=== PATIENT | male | born 1985 | race Caucasian/White ===

== ENCOUNTER 2018-10-06 12:55 | Emergency (ER) | payer OTHER, SELFPAY ==
[2018-10-06 13:05] VITALS: BP 159/99; PULSE 106; RESP 14; TEMP 37.8; O2SAT 95
--- NOTE | 2018-10-06 13:38 | ED.GENADUL_ITS ---
Discharge Plan Disposition Patient Disposition: HOME Condition: Improving Discharge Details Chief Complaint: Cellulitis Clinical Impression: Cellulitis of left leg Primary Care Provider: Katharine,Local ED Provider: Amber Oreilly Home Meds and New Rx's Prescriptions: New clindamycin HCl 150 mg capsule 450 mg PO Q6H 10 Days Qty: 120 RF: 0 Continued clonidine HCl 0.1 mg Tablet 0.1 mg PO DIRECTED RF: 0 acetaminophen 325 mg Tablet 650 mg PO ONCE PRNRF: 0 divalproex 250 mg Tablet,Delayed Release (Dr/Ec) 750 mg PO BID RF: 0 cyproheptadine 4 mg Tablet 8 mg PO DAILY RF: 0 ranitidine HCl [Zantac] 150 mg Tablet 150 mg PO DAILY RF: 0 naproxen 500 mg Tablet 500 mg PO BID PRNRF: 0 duloxetine 60 mg Capsule,Delayed Release(Dr/Ec) 60 mg PO DAILY RF: 0 Discontinued sulfamethoxazole-trimethoprim 800-160 mg Tablet 1 tab PO BID RF: 0 Discharge Instructions Instructions: Cellulitis (ED) Additional Instructions: Stop taking the Bactrim. Start taking the clindamycin and finish as directed. Alternate Tylenol and Motrin as needed and directed for pain. Follow-up with the medical staff tomorrow at the correctional facility for reevaluation. Return immediately to the emergency department if you develop any worsening or new concerning symptoms. Discharge Data Discharge Physician: Amber Oreilly Medical Decision Making 33-year-old male who presents to the correctional facility with left leg cellulitis for the past few days. Now developing fever and chills. Has taken 2 doses of Bactrim. Heart rate 106. Temp 100.1. Patient appears nontoxic. There is an area of cellulitis from the mid leg down to the foot. There is a center crust that could be consistent with a bug bite. Patient is unsure how he obtained this. Denies any known history of tick. Will place an IV, screening labs, lactate blood cultures, x-rays of ankle and leg and give bolus IV fluids, Tylenol and Toradol. 1610 -- Labs and imaging reviewed. White blood cell count 11.84. Lactate 2.0. X-rays note soft tissue edema and marked tissue swelling around the ankle. In the setting of significant edema and elevated lactate, will obtain a CT lower e xtremity to rule out abscess. Dose of clindamycin IV ordered. 1814 --CT notes soft tissue swelling but no obvious abscess. Repeat lactate done and normalized at 1.1. Patient states he feels much better. Repeat vital signs note normal heart rate, and blood pressure and he is now afebrile. There is notable significant decrease in erythema to the left lower extremity. Although patient only had 2 doses of Bactrim, as there is significant improvement while here, will change antibiotics to clindamycin. Patient appropriate for discharge back to correctional facility. New skin markings were placed around outer edges which had slightly progressed outside markings this morning but which appear already improved. Advised to follow-up with medical staff this week for evaluation and to return here anytime if worse. Medical Records Medical records reviewed: Yes I reviewed the patient's medical records. Imaging Data Radiologic Study: Radiologist's impression: Addendum created by Crissy Huertas MD on 10/06/2018 4:09:25 PM EDT No evidence for bone erosion to suggest osteomyelitis. Again study incompletely evaluates the ankle. Initial report created on 10/06/2018 4:08:04 PM EDT XR Left Tibia and Fibula EXAM DATE/TIME: 10/06/2018 2:01 PM CLINICAL HISTORY: 33 years old, male; Other: Left ankle cellulitis, R/O osteomyelitis TECHNIQUE: Imaging protocol: XR Left tibia and fibula. Views: 2 views. COMPARISON: No relevant prior studies available. FINDINGS: Bones/joints: Limited study of the proximal tibia and fibula. The evaluation of the ankle is incomplete. There is no obvious fracture or dislocation. Soft tissues: There is soft tissue edema along the medial aspect of the lower leg. IMPRESSION: 1. Soft tissue edema involving the medial distal lower extremity. 2. No obvious acute bony injury. Incomplete evaluation of the ankle. XR Left Ankle EXAM DATE/TIME: 10/06/2018 2:01 PM CLINICAL HISTORY: 33 years old, male; Other: Left legcellulitis, R/O osteomyelitis TECHNIQUE: Imaging protocol: XR Left ankle. Views: 3 or more views. COMPARISON: No relevant prior studies available. FINDINGS: Bones/joints: There is no evidence for bone erosion to suggest osteomyelitis. There is no fracture or dislocation. Soft tissues: Marked soft tissue swelling of the ankle. IMPRESSION: Soft tissue swelling left ankle. No evidence for bone erosion. There's a concern for abscess or venous thrombosis, ultrasound may be helpful for further evaluation. CT Left Lower Extremity With Contrast, Tibia and Fibula EXAM DATE/TIME: 10/06/2018 4:17 PM CLINICAL HISTORY: 33 years old, male; Pain; Swelling, leg or foot; Lower leg; Left TECHNIQUE: Imaging protocol: CT of the Left lower extremity with intravenous contrast was performed. Exam focused on the tibia and fibula. Coronal and sagittal reformatted images were created and reviewed. Radiation optimization: All CT scans at this facility use at least one of these dose optimization techniques: automated exposure control; mA and/or kV adjustment per patient size (includes targeted exams where dose is matched to clinical indication); or iterative reconstruction. Contrast material: OMNIPAQUE 350;Contrast volume: 100 ml;Contrast route: IV; COMPARISON: SC XR tib/fib LT 06/10/2018 15:28 FINDINGS: Bones/joints: No fracture or dislocation. No bone erosion. Small knee effusion. Small ankle effusion. Soft tissues: Subcutaneous edema primarily involving the foot and ankle, but extending up the lower leg. IMPRESSION: 1. Diffuse edema involving the foot, ankle, and lower extremity. 2. Small fluid collection in the talotibial joint and knee. 3. No evidence for bone erosion or fracture. HPI General Mode of arrival: ambulatory . Date/Time Provider Initiated Documentation: 10/06/18 13:38 . Limitations to Documentation: no limitations . Information obtained by: patient . HPI Narrative: Patient is a 33-year-old male who presents from the correctional facility with left leg infection for the past few days. Patient states a few days ago he noticed what he thought was a bug bite to his left ankle/foot. He states that since yesterday he has developed increasing redness and pain around the site. This morning he was seen by the nurse and they marked the area of cellulitis. He states he has taken 2 doses of Bactrim without relief. He admits to chills and fever. He denies any chest pain or shortness of breath. He denies seeing a bug bite but he assumes it may have been. He denies any known tick bite. Related Data Home Medications Medication Instructions Recorded Confirmed acetaminophen 650 mg PO ONCE PRN 10/06/18 10/06/18 clindamycin HCl 450 mg PO Q6H 10 Days #120 cap 10/06/18 clonidine HCl 0.1 mg PO DIRECTED 10/06/18 10/06/18 cyproheptadine 8 mg PO DAILY 10/06/18 10/06/18 divalproex 750 mg PO BID 10/06/18 10/06/18 duloxetine 60 mg PO DAILY 10/06/18 10/06/18 naproxen 500 mg PO BID PRN 10/06/18 10/06/18 ranitidine HCl [Zantac] 150 mg PO DAILY 10/06/18 10/06/18 Previous Rx's Medication Instructions Recorded clindamycin HCl 450 mg PO Q6H 10 Days #120 cap 10/06/18 Allergies Allergy/AdvReac Type Severity Reaction Status Date / Time erythromycin base Allergy Unverified 10/06/18 13:08 General Stated Complaint: Cellulitis SRAVANI: 3 Review of Systems Review of Systems All systems reviewed & are unremarkable except as noted in HPI and below Constitutional Reports as per HPI, Reports chills and Reports fever(s) Eyes Denies blurry vision ENT Denies dizziness, Denies sore throat and Denies throat swelling Cardiovascular Denies chest pain and Denies dyspnea Respiratory Denies cough and Denies dyspnea Gastrointestinal Denies abdominal pain, Denies diarrhea and Denies vomiting Genitourinary Denies hematuria and Denies dysuria Musculoskeletal Denies back pain and Denies numbness Integumentary/Breasts Reports lesions and Reports rash Neurologic Denies dizziness, Denies focal weakness and Denies numbness Allergic/Immunologic Denies throat swelling PFSH Medical History No significant past medical history (Acute) Surgical History No significant past surgical history (Acute) Social History Alcohol Intake: never Drug use: Current Sobriety Substance use type: opiates Exam Const General: cooperative, healthy appearing and no acute distress HENMT Head: normal to inspection Face and sinus: normal facial exam Eyes General: appearance normal, both eyes and all related structures EOM: EOM intact bilaterally Neck Neck: normal visual inspection and No submandibular swelling Lymphatic: no lymphadenopathy noted Chest Chest: normal inspection of the chest and no tenderness Resp Effort & Inspection: normal respiratory effort and able to speak in complete sentences Auscultation: clear to auscultation bilaterally Cardio Rate: regular rate Rhythm: regular rhythm GI Inspection: normal to inspection Palpation: soft, not firm, not rigid and nontender Auscultation: normal bowel sounds Male General Exam: Yes normal external exam Back/Spine/Pelvis Thoracic/Lumbar Spine: thoracic and lumbar spine normal to inspection Pelvis: no pain with anterior-posterior compression Skin General skin exam: no rashes or lesions noted Neuro General: alert, awake and oriented x3 Cognition: normal cognition Speech: speech normal Motor: muscle tone normal throughout Sensory Exam: no sensory deficits noted Extrem General: full ROM, normal capillary refill and no calf tenderness bilaterally Ankle/foot/toe images: 1. Erythema noted 2. Erythema noted. 3. 1 x 1 cm crust noted with surrounding edema and erythema. Other: Bilateral DP/PT pulses intact. Psych Appearance: grossly normal Mental Status: mental status grossly normal Speech and Movement: speech and movement normal Affect: normal affect Course Vital Signs Temperature 100.1 F H 10/06/18 13:05 Pulse 106 H 10/06/18 13:05 Respiratory Rate 14 10/06/18 13:05 Blood Pressure 159/99 H 10/06/18 13:05 Pulse Oximetry 95 10/06/18 13:05 Temperature 100.1 F H 10/06/18 13:05 Temperature Source Oral 10/06/18 13:05 Pulse 106 H 10/06/18 13:05 Respiratory Rate 14 10/06/18 13:05 Respiratory Effort Non-Labored 10/06/18 13:25 Blood Pressure 159/99 H 10/06/18 13:05 Blood Pressure Position Sitting 10/06/18 13:05 Pulse Oximetry 95 10/06/18 13:05 Oxygen Delivery Method Room Air 10/06/18 13:05 Oxygen Flow Rate 0 10/06/18 13:05 Pain Level 8 10/06/18 13:05
--- NOTE | 2018-10-06 13:54 | DI.RAD_ITS ---
SYMPTOMS/DIAGNOSIS: LEFT LEG AND ANKLE CELLULITIS, ? OSTEOMYELITIS LEFT TIBIA AND FIBULA: No fracture is identified. There is soft tissue edema distally. The ankle is not fully included on the exam. IMPRESSION: No acute bony abnormality. LEFT ANKLE: There is edema greater medially. No fracture or ankle mortise widening is seen. No bony erosions are identified. IMPRESSION: Soft tissue edema.
[2018-10-06 15:33] LABS: Abs Immature Grans 0.03 k/cumm (0.0-0.09); Absolute Basophil Count 0.02 k/cumm (0.0-0.2); Absolute Eosinophil Count 0.08 k/cumm (0.0-0.7); Absolute Monocyte Count 0.84 k/cumm (0.11-0.7); Basophils % 0.2; Eosinophils % 0.7; HCT 41.3 % (40.0-50.0); HGB 14.2 g/dL (13.5-17.5); Immature Grans % 0.3; Lymphocytes % 19.3; Mean Corp. HGB Concentration 34.4 g/dL (32.0-36.0); Mean Corpuscular Hemoglobin 30.2 pg (27.0-33.0); Mean Corpuscular Volume 87.9 fL (80-95); Mean Platelet Volume 10.6 fL (8.0-11.0); Monocytes % 7.1; Neutrophils % 72.4; Platelet Count 168 x1000/uL (130-400); RBC Distribution Width 13.4 % (11.8-14.1); White Blood Cell Count 11.84 k/cumm (4.4-10.8)
[2018-10-06 15:36] LABS: Absolute Lymphocyte Count 2.29 k/cumm (1.2-3.4); Absolute Neutrophil Count 8.57 k/cumm (1.2-6.7)
[2018-10-06 15:52] LABS: BUN 13 mg/dL (7-18); CREATININE 0.99 mg/dL (0.70-1.30); Calcium 9.8 mg/dL (8.5-10.1); Chloride 99 mmol/L (98-107); Glucose 98 mg/dL (70-100); Potassium 4.4 mmol/L (3.5-5.1); Sodium 137 mmol/L (136-145)
--- NOTE | 2018-10-06 16:08 | DI.VRAD_ITS ---
Addendum created by Crissy Huertas MD on 10/06/2018 4:09:25 PM EDT No evidence for bone erosion to suggest osteomyelitis. Again study incompletely evaluates the ankle. Initial report created on 10/06/2018 4:08:04 PM EDT EXAM: XR Left Tibia and Fibula EXAM DATE/TIME: 10/06/2018 2:01 PM CLINICAL HISTORY: 33 years old, male; Other: Left ankle cellulitis, R/O osteomyelitis TECHNIQUE: Imaging protocol: XR Left tibia and fibula. Views: 2 views. COMPARISON: No relevant prior studies available. FINDINGS: Bones/joints: Limited study of the proximal tibia and fibula. The evaluation of the ankle is incomplete. There is no obvious fracture or dislocation. Soft tissues: There is soft tissue edema along the medial aspect of the lower leg. IMPRESSION: 1. Soft tissue edema involving the medial distal lower extremity. 2. No obvious acute bony injury. Incomplete evaluation of the ankle. Dictated and Authenticated by: Crissy Huertas MD. Ordering:MONET Clark MD
--- NOTE | 2018-10-06 16:11 | DI.VRAD_ITS ---
EXAM: XR Left Ankle EXAM DATE/TIME: 10/06/2018 2:01 PM CLINICAL HISTORY: 33 years old, male; Other: Left legcellulitis, R/O osteomyelitis TECHNIQUE: Imaging protocol: XR Left ankle. Views: 3 or more views. COMPARISON: No relevant prior studies available. FINDINGS: Bones/joints: There is no evidence for bone erosion to suggest osteomyelitis. There is no fracture or dislocation. Soft tissues: Marked soft tissue swelling of the ankle. IMPRESSION: Soft tissue swelling left ankle. No evidence for bone erosion. There's a concern for abscess or venous thrombosis, ultrasound may be helpful for further evaluation. Dictated and Authenticated by: Crissy Huertas MD. Ordering:MONET Clark MD
--- NOTE | 2018-10-06 16:16 | DI.CT_ITS ---
SYMPTOMS/DIAGNOSIS: LEFT LEG AND ANKLE CELLULITIS, ? OSTEOMYELITIS CT OF THE LEFT TIBIA AND FIBULA: There is no evidence of fracture. The knee and ankle are unremarkable. There is edema in the subcutaneous fat. No localized fluid collection is seen. There are no bony erosions. IMPRESSION: Distal soft tissue edema. No evidence of osteomyelitis.
[2018-10-06] MEDS: CLINDAMYCIN 900 MG/50 ML BAG 50 MG IVPB (16:31)
[2018-10-06] MEDS: Omnipaque 350 MG/ML 100 ML BTL IJ (17:27)
[2018-10-06] MEDS: Normal Saline Flush 10 ML SYR IVP (17:28)
--- NOTE | 2018-10-06 17:45 | DI.VRAD_ITS ---
EXAM: CT Left Lower Extremity With Contrast, Tibia and Fibula EXAM DATE/TIME: 10/06/2018 4:17 PM CLINICAL HISTORY: 33 years old, male; Pain; Swelling, leg or foot; Lower leg; Left TECHNIQUE: Imaging protocol: CT of the Left lower extremity with intravenous contrast was performed. Exam focused on the tibia and fibula. Coronal and sagittal reformatted images were created and reviewed. Radiation optimization: All CT scans at this facility use at least one of these dose optimization techniques: automated exposure control; mA and/or kV adjustment per patient size (includes targeted exams where dose is matched to clinical indication); or iterative reconstruction. Contrast material: OMNIPAQUE 350;Contrast volume: 100 ml;Contrast route: IV; COMPARISON: SC XR tib/fib LT 06/10/2018 15:28 FINDINGS: Bones/joints: No fracture or dislocation. No bone erosion. Small knee effusion. Small ankle effusion. Soft tissues: Subcutaneous edema primarily involving the foot and ankle, but extending up the lower leg. IMPRESSION: 1. Diffuse edema involving the foot, ankle, and lower extremity. 2. Small fluid collection in the talotibial joint and knee. 3. No evidence for bone erosion or fracture. Dictated and Authenticated by: Crissy Huertas MD. Ordering:MONET Clark MD
[2018-10-06 19:16] LABS: Lactate-non-spesis 1.1 mmol/l (0.6-1.4)
[2018-10-06] MEDS: Ketorolac 30 MG/ML VIAL IVP (19:25)
[2018-10-06 19:36] VITALS: BP 135/64; PULSE 64; RESP 16; O2SAT 96
== END 2018-10-06 19:50 | disposition home or self-care (01) ==
PROVIDERS: Emergency Provider Physician Assistant
DX: L03.116 Cellulitis of left lower limb (principal)
CPT/HCPCS: 36415; 80048; 87040; 96365; 96375; 99285; 73590; 73610; 73701; 83605; 85025; 99284; J1885; J3490